=== PATIENT | female | born 1965 | race Caucasian/White ===

== ENCOUNTER 2016-09-08 16:17 | Emergency (ER) | payer OTHER ==
[~2016-09-08] VITALS: Ht 170.2 cm; Wt 69.4 kg
[2016-09-08 16:23] VITALS: BP 126/80
--- NOTE | 2016-09-08 17:39 | ED UPPER/LOWER EXTREMITY COMPL ---
History of Present Illness General Chief Complaint: Fall Stated Complaint: PT FELL AND HURT HER HIP AND KNEE RT Source: patient Exam Limitations: no limitations Vital Signs & Intake/Output Vital Signs & Intake/Output Vital Signs Date Time Temp Pulse Resp B/P B/P Pulse O2 O2 Flow FiO2 Mean Ox Delivery Rate 09/08 1623 97.2 87 15 126/80 95 Room Air Room Air Allergies Coded Allergies: No Known Allergies (09/08/16) Reconcile Medications Meloxicam (Mobic) 15 MG TABLET 1 TAB PO DAILY PRN PAIN Triage Note: PT TO ED FOR R HIP AND KNEE PAIN S/P TRIP AND FALL YESTERDAY. PT USED ICE WITHOUT RELIEF. 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 NO SWELLING NOTED. Triage Nurses Notes Reviewed? yes Onset: Abrupt Duration: constant Timing: recent history Severity: moderate Severity Numbers: 5 Method of Injury: direct blow, fall HPI: Patient is a 51-year-old female who presents emergency room seen at yesterday patient tripped on an object by her feet which patient fell forward striking the right anterior aspect of her knee to the ground where she noted pain later on that evening patient also noted pain to the hip this morning as made worse with ambulation and up and down stairs. Patient has not taken any medications for symptoms. Denies any head strike neck pain or back pain and is otherwise without complaints Past History Travel History Traveled to [place] past 21 day No Medical History Any Pertinent Medical History? 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 No Review of Systems Review of Systems Constitutional: Reports: no symptoms. EENTM: Reports: no symptoms. Respiratory: Reports: no symptoms. Cardiovascular: Reports: no symptoms. Gastrointestinal/Abdominal: Reports: no symptoms. Genitourinary: Reports: no symptoms. Musculoskeletal: Reports: see HPI, joint pain. Skin: Reports: no symptoms. Neurological/Psychological: Reports: no symptoms. Hematologic/Endocrine: Reports: no symptoms. Immunological: Reports: no symptoms. All Other Systems: Reviewed and Negative Physical Exam Physical Exam General Appearance: no apparent distress, alert, comfortable Neurologic/Tendon: normal sensation, normal motor functions, normal tendon functions, responds to pain, no evidence tendon injury, no pulse deficit Skin: intact, normal color, warm/dry Comments: Well-developed well-nourished no apparent distress. HEENT: Atraumatic, extraocular motion intact Neck: Supple, no lymphadenopathy Back: Nontender Respiratory: No respiratory distress Extremities: Right hip normal inspection generalized hip point tenderness noted full active range of motion patient able to perform straight leg raise Right knee mild generalized point tenderness and swelling noted full active range of motion noted negative valgus stress is negative varus stress test negative anterior drawer test negative posterior drawer test Right lower extremity dermatomes intact Neuro: Alert and oriented x3 Psych: Mood affect normal, normal memory normal judgment. Progress Differential Diagnosis: arterial insufficiency, compartment syndrome, contusion, dislocation, DVT, fracture, gout, septic arthritis, sprain, tendon injury Plan of Care: Orders Procedure Date/time Status XRY-KNEE, RIGHT 09/08 1625 Active XRY-HIP 2-3 VIEWS, RIGHT 09/08 1625 Active Patient had normal steady gait no concerns of ligamentous injury. 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 Radiology Impression: no acute abnormality, no fracture Comments: PATIENT: GRAYSON KENNEDY PRESENT AGE: 51 PATIENT ACCOUNT NO: [id number] : 65 LOCATION: [facility] ORDERING PHYSICIAN: DANIEL CUNNINGHAM SERVICE DATE: 09/08/16 EXAM TYPE: RAD - XRY-HIP 2-3 VIEWS, RIGHT EXAMINATION: XR HIP, RIGHT CLINICAL INFORMATION: Trauma to the right hip. Rule out fracture. COMPARISON: None TECHNIQUE: AP and frog lateral views of the right hip were obtained. FINDINGS: The femoral head is well-seated in the acetabulum. The hip joint space is well-preserved. No evidence of subarticular sclerosis or cystic changes. No evidence of fracture or dislocation. Visualized sacroiliac joints and symphysis pubis are unremarkable. Small calcification is noted in the acetabular labrum on the superior lateral aspect. IMPRESSION: No evidence of fracture or dislocation in the right hip. DICTATED BY: RL HAYESANAL DATE/TIME DICTATED:09/08/161753 EARLY CHILDHOOD TEACHER ASSISTANT:VAISHALI DATE/TIME TRANSCRIBED:09/08/161753 PATIENT: GRAYSON KENNEDY PRESENT AGE: 51 PATIENT ACCOUNT NO: [id number] : 65 LOCATION: [facility] ORDERING PHYSICIAN: DANIEL CUNNINGHAM SERVICE DATE: 09/08/16 EXAM TYPE: RAD - XRY-KNEE, RIGHT EXAMINATION: XR KNEE, RIGHT CLINICAL INFORMATION: Trauma. COMPARISON: None TECHNIQUE: Four views of the right knee. FINDINGS: Bones and soft tissues are normal. No fracture or joint effusion. Alignment is anatomic. Joint spaces are well maintained. No abnormal soft tissue calcification. IMPRESSION: No evidence of acute fracture or dislocation in the right knee. Unremarkable examination. DICTATED BY: RIK SHINE MD DATE/TIME DICTATED:09/08/161752 EARLY CHILDHOOD TEACHER ASSISTANT:VAISHALI DATE/TIME TRANSCRIBED:09/08/161752 Departure Departure Disposition: HOME OR SELF CARE Condition: Stable Clinical Impression Primary Impression: Right knee pain Secondary Impressions: Right hip pain Referrals: SHERIN HAYES,[place] PATIENT HAS NO PRIMARY CARE DR (PCP/Family) Additional Instructions: As discussed begin icing the area directly 20 minutes every 2 hours begin use an Jace wrap for swelling. Begin the prescription meloxicam for pain and inflammation. Prescription is waiting at [facility] pharmacy. If symptoms worsen return to emergency room. If no better in one week follow-up with orthopedic Departure Forms: Customer Survey General Discharge Information Prescriptions: Current Visit Scripts Meloxicam (Mobic) 1 TAB PO DAILY PRN PAIN #20 TAB
--- NOTE | 2016-09-08 17:57 | RADIOLOGY REPORT ---
EXAMINATION: XR KNEE, RIGHT CLINICAL INFORMATION: Trauma. COMPARISON: None TECHNIQUE: Four views of the right knee. FINDINGS: Bones and soft tissues are normal. No fracture or joint effusion. Alignment is anatomic. Joint spaces are well maintained. No abnormal soft tissue calcification. IMPRESSION: No evidence of acute fracture or dislocation in the right knee. Unremarkable examination.
--- NOTE | 2016-09-08 17:59 | RADIOLOGY REPORT ---
EXAMINATION: XR HIP, RIGHT CLINICAL INFORMATION: Trauma to the right hip. Rule out fracture. COMPARISON: None TECHNIQUE: AP and frog lateral views of the right hip were obtained. FINDINGS: The femoral head is well-seated in the acetabulum. The hip joint space is well-preserved. No evidence of subarticular sclerosis or cystic changes. No evidence of fracture or dislocation. Visualized sacroiliac joints and symphysis pubis are unremarkable. Small calcification is noted in the acetabular labrum on the superior lateral aspect. IMPRESSION: No evidence of fracture or dislocation in the right hip.
[2016-09-08] MEDS ORDERED: MOBIC15 M1 PO (18:18)
== END 2016-09-08 18:44 ==
LOC: EDBD 16:17 → ERH 16:17
DX: M25.561 Pain in right knee (principal); M25.551 Pain in right hip
CPT/HCPCS: 73502-RT; 73560-RT